=== PATIENT | female | born 1990 | race Caucasian/White ===

== ENCOUNTER 2016-12-31 12:46 | Emergency (ER) | payer MEDICAID, OTHER ==
[2016-12-31 12:51] VITALS: TEMP 97.5
[2016-12-31] MEDS ORDERED: ONDANSETRON 4 MG/2 ML VIAL IVP ONE (13:13)
[2016-12-31] MEDS ORDERED: NS 1,000 ML IV ONE (13:13)
[2016-12-31] MEDS ORDERED: fentaNYL 100 MCG/2 ML INJ IVP ONE (13:13)
--- NOTE | 2016-12-31 13:13 | EDPHY ---
H & P Time Seen by Provider: 12/31/16 13:04 HPI/ROS: CHIEF COMPLAINT: Abdominal pain HISTORY OF PRESENT ILLNESS: Patient developed abdominal pain today on awakening at 9:00 a.m. in her right lower abdomen. It was associated with cold sweats and nausea with an episode of vomiting just prior to arrival. She went to urgent care was referred here. Not associated with urinary symptoms or vaginal bleeding. Last menstrual period was 4 days ago. No fever or vaginal discharge. Symptoms mild to moderate and worse with eating. REVIEW OF SYSTEMS: Eye: no change in vision ENT: no sore throat Cardiac: no chest pain or syncope Pulmonary: no cough or SOB Abdomen: HPI Musculoskeletal: no back pain Skin: no rash Neuro: no headache Constitutional: no fever : no urinary symptoms A comprehensive 10 point review of systems is otherwise negative aside from elements mentioned in the history of present illness. 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 Social history: No alcohol or tobacco, recent University graduate General Appearance: Alert and conversant, cooperative. Eyes: No scleral icterus. ENT, Mouth: Normal mucous membranes. Respiratory: Normal respiratory effort, breath sounds equal, lungs are clear to auscultation. Cardiovascular: Regular rate and rhythm. Gastrointestinal: Mild right lower quadrant tenderness without rebound or guarding, normal bowel sounds. Neurological: Alert and oriented x3. Normally conversant. Face symmetric, normal movement and sensation in all extremities. Skin: Warm and dry, no rashes. Musculoskeletal: No peripheral edema and no joint swelling. Psychiatric: Not agitated. Emergency Department course/MDM: Fentanyl 50 mcg IV, urinalysis and test, Zofran 4 mg IV. 1 L normal saline IV for vomiting. Ultrasound of the appendix and pelvis to evaluate right ovary. 1450: Pain better, no focal tenderness. Microscopic hematuria discussed and CT abdomen and pelvis discussed and consented. 1550: Results discussed in detail and CT scan reviewed with the patient. She is comfortable now her symptoms are well controlled. She is warned that she may not passed the stone and that urology follow-up is mandatory. She would like to try and pass it without intervention. She declines taking acetaminophen or ibuprofen because of adverse drug reaction. Flomax discussed and consented. Smoking Status: Never smoked Constitutional: Initial Vital Signs Temperature (C) 36.4 C 12/31/16 12:49 Heart Rate 78 12/31/16 12:49 Respiratory Rate 14 12/31/16 12:49 Blood Pressure 104/75 12/31/16 12:49 O2 Sat (%) 95 12/31/16 12:49 O2 Delivery Mode Room Air Allergies/Adverse Reactions: acetaminophen [From Tylenol] Allergy (Verified 12/31/16 12:51) ibuprofen Allergy (Verified 12/31/16 12:51) Home Medications: Medication Instructions Recorded Adderall 10 MG (*) 12/31/16 LaMICtal 12/31/16 Oxycodone HCl 5 mg PO Q8 PRN #11 tablet 12/31/16 Tamsulosin HCl [Flomax] 0.4 mg PO DAILY8 #10 cap 12/31/16 Medical Decision Making - Diagnostics Imaging: Ultrasound per Anyi at 2:40 p.m. shows normal pelvis, appendix not visualized. CT shows R UPJ stone 7mmx 5mm [place] 1536. Differential Diagnosis: Differential considered including but not limited to ovarian torsion, ovarian cyst, UTI, appendicitis, PID. - Data Points Laboratory Results: Laboratory Results 12/31/16 13:10 12/31/16 13:10 12/31/16 12/31/16 12/31/16 14:15 13:10 13:10 WBC RBC Hgb Hct MCV MCH MCHC RDW Plt Count MPV Neut % (Auto) Lymph % (Auto) Blair % (Auto) Eos % (Auto) Baso % (Auto) Nucleat RBC Rel Count Absolute Neuts (auto) Absolute Lymphs (auto) Absolute Monos (auto) Absolute Eos (auto) Absolute Basos (auto) Absolute Nucleated RBC Immature Gran % Immature Gran # Sodium 141 mEq/L mEq/L (134-144) Potassium 4.2 mEq/L mEq/L (3.5-5.2) Chloride 104 mEq/L mEq/L (97-110) Carbon Dioxide 21 mEq/l L mEq/l (22-31) Anion Gap 16 mEq/L mEq/L (8-16) BUN 11 mg/dL mg/dL (7-23) Creatinine 0.9 mg/dL mg/dL (0.6-1.0) Estimated GFR > 60 Glucose 116 mg/dL H mg/dL (70-100) Calcium 10.7 mg/dL H mg/dL (8.5-10.4) Phosphorus 2.6 mg/dL mg/dL (2.5-4.5) Beta HCG, Qual NEGATIVE Urine RBC 50-182 /hpf H /hpf (0-3) Urine WBC 1-3 /hpf /hpf (0-3) Ur Epithelial Cells TRACE /lpf /lpf (NONE-1+) Urine Bacteria TRACE /hpf H /hpf (NONE SEEN) Urine Mucus TRACE /lpf /lpf (NONE-1+) 12/31/16 13:10 WBC 10.72 10^3/uL H 10^3/uL (3.80-9.50) RBC 5.21 10^6/uL 10^6/uL (4.18-5.33) Hgb 15.3 g/dL g/dL (12.6-16.3) Hct 44.9 % % (38.0-47.0) MCV 86.2 fL fL (81.5-99.8) MCH 29.4 pg pg (27.9-34.1) MCHC 34.1 g/dL g/dL (32.4-36.7) RDW 12.1 % % (11.5-15.2) Plt Count 390 10^3/uL 10^3/uL (150-400) MPV 9.4 fL fL (8.7-11.7) Neut % (Auto) 72.1 % % (39.3-74.2) Lymph % (Auto) 20.1 % % (15.0-45.0) Blair % (Auto) 4.8 % % (4.5-13.0) Eos % (Auto) 2.0 % % (0.6-7.6) Baso % (Auto) 0.6 % % (0.3-1.7) Nucleat RBC Rel Count 0.0 % % (0.0-0.2) Absolute Neuts (auto) 7.74 10^3/uL H 10^3/uL (1.70-6.50) Absolute Lymphs (auto) 2.16 10^3/uL 10^3/uL (1.00-3.00) Absolute Monos (auto) 0.51 10^3/uL 10^3/uL (0.30-0.80) Absolute Eos (auto) 0.21 10^3/uL 10^3/uL (0.03-0.40) Absolute Basos (auto) 0.06 10^3/uL 10^3/uL (0.02-0.10) Absolute Nucleated RBC 0.00 10^3/uL 10^3/uL (0-0.01) Immature Gran % 0.4 % % (0.0-1.1) Immature Gran # 0.04 10^3/uL 10^3/uL (0.00-0.10) Sodium Potassium Chloride Carbon Dioxide Anion Gap BUN Creatinine Estimated GFR Glucose Calcium Phosphorus Beta HCG, Qual Urine RBC Urine WBC Ur Epithelial Cells Urine Bacteria Urine Mucus Medications Given: Discontinued Medications Fentanyl (Sublimaze) 50 mcg IVP EDNOW ONE Stop: 12/31/16 13:14 Last Admin: 12/31/16 13:23 Dose: 50 mcg Sodium Chloride (Ns) 1,000 mls @ 0 mls/hr IV ONCE ONE PRN Reason: Wide Open Stop: 12/31/16 13:14 Last Admin: 12/31/16 13:23 Dose: 1,000 mls Ondansetron HCl (Zofran) 4 mg IVP EDNOW ONE Stop: 12/31/16 13:14 Last Admin: 12/31/16 13:24 Dose: 4 mg Departure - Departure Disposition: Home, Routine, Self-Care Clinical Impression: Renal colic on right side Condition: Fair Instructions: Renal Colic (ED) Additional Instructions: Strain urine as directed. Follow up with Urology Dr. Patel or 1 of his colleagues at [facility] here in [place] early next week. Referrals: Henok Cook MD [Primary Care Provider] - As per Instructions Yohan Patel MD [Medical Doctor] - As per Instructions Prescriptions: Oxycodone HCl 5 mg PO Q8 PRN #11 tablet PRN Reason: pain Tamsulosin HCl [Flomax] 0.4 mg PO DAILY8 #10 cap
[2016-12-31 13:26] LABS: % IMMATURE GRANULYOCYTES 0.4 % (0.0-1.1); ABSOLUTE IMMATURE GRANULOCYTES 0.04 10^3/uL (0.00-0.10); ADD DIFF? NO; ADD MORPH? NO; ADD SCAN? NO; ATYPICAL LYMPHOCYTE FLAG 30 (0-99); FRAGMENT RBC FLAG 0 (0-99); HEMATOCRIT 44.9 % (38.0-47.0); HEMOGLOBIN 15.3 g/dL (12.6-16.3); LEFT SHIFT FLG 10 (0-99); LIPEMIA HEMOLYSIS FLAG 90 (0-99); MEAN CELL HEMOGLOBIN 29.4 pg (27.9-34.1); MEAN CELL HEMOGLOBIN CONCENTR. 34.1 g/dL (32.4-36.7); MEAN CELL VOLUME 86.2 fL (81.5-99.8); MEAN PLATELET VOLUME 9.4 fL (8.7-11.7); PLATELET CLUMPS FLAG 0 (0-99); PLATELET COUNT 390 10^3/uL (150-400); RED BLOOD CELL COUNT 5.21 10^6/uL (4.18-5.33); RED CELL DISTRIBUTION WIDTH 12.1 % (11.5-15.2)
[2016-12-31 13:43] LABS: ANION GAP 16 mEq/L (8-16); CALCIUM 10.7 mg/dL (8.5-10.4); CARBON DIOXIDE 21 mEq/l (22-31); CHLORIDE 104 mEq/L (97-110); CREATININE 0.9 mg/dL (0.6-1.0); GLOMERULAR FILTRATION RATE > 60; GLUCOSE 116 mg/dL (70-100); POTASSIUM 4.2 mEq/L (3.5-5.2); SODIUM 141 mEq/L (134-144)
[2016-12-31 13:45] VITALS: BP 134/75; PULSE 58; RESP 16; O2SAT 100
[2016-12-31 14:40] LABS: BACTERIA TRACE /hpf (NONE SEEN); MUCUS TRACE /lpf (NONE-1+); RBC,URINE 50-182 /hpf (0-3)
== END 2016-12-31 16:44 | disposition home or self-care (01) ==
DX: N23 Unspecified renal colic (principal)
CPT/HCPCS: J2405; J3010